=== PATIENT | female | born 1975 | race Caucasian/White ===

== ENCOUNTER 2016-08-26 16:46 | Emergency (ER) | payer BC, OTHER, SELFPAY ==
[~2016-08-26] VITALS: Ht 165.1 cm; Wt 56.7 kg
[~2016-08-26 16:46] MED LIST: ACET50TA PO; IBUP80TA PO; PREN27TA3 PO; SABOXONE PO
[2016-08-26 16:50] VITALS: BP 123/69
[2016-08-26] MEDS ORDERED: AUGMENTIN 875 MG TAB PO ONE (18:00)
[2016-08-26] MEDS ORDERED: ACETAMINOPHEN 325 MG TAB PO ONE (18:00)
[2016-08-26] MEDS ORDERED: AMOX500C PO (18:08)
== END 2016-08-26 18:16 | disposition home or self-care (01) ==
LOC: M ED 18:14
DX: J02.0 Streptococcal pharyngitis (principal); Z88.8 Allergy status to other drugs, medicaments and biological substances; Z79.899 Other long term (current) drug therapy